=== PATIENT | female | born 1980 | race Caucasian/White ===

== ENCOUNTER 2017-03-02 22:58 | Emergency (ER) | payer OTHER ==
[~2017-03-02] VITALS: Ht 162.6 cm; Wt 63.6 kg
[2017-03-02 23:00] VITALS: Ht 162.6 cm; Wt 63.6 kg
[2017-03-02] MEDS ORDERED: ONDANSETRON 4 MG INJ IV STA (23:39)
[2017-03-02] MEDS ORDERED: SOD CHLORIDE 0.9% 1,000 ML IV STA (23:39)
[2017-03-02] MEDS ORDERED: FAMOTIDINE 20 MG INJ IV STA (23:39)
--- NOTE | 2017-03-02 23:55 | ERD ---
ER Documentation Chief Complaint Date/Time DATE: 03/02/17 TIME: 23:53 Chief Complaint SOB X 1 WEEK. WORSE TONIGHT. DENIES COUGH OR FEVER 9 WEEKS HPI 36-year-old female presents here in emergency department for complaints of mid chest pain, epigastric pain radiating to the mid chest area shortness of breath on and off for one week. Patient also has vomiting episodes with the ,2 -3 episodes per day. Patient does not take any medication for vomiting. Patient describes the pain as sharp pain at epigastric pain and burning pain 4/10 scale , accompanying the vomiting episodes. Patient states it gets worse at night. Patient denies any dyspnea on exertion or dyspnea on lying down. Patient denies any palpitations or regular heartbeat. Patient denies any fever or chills. Patient denies hematuria or dysuria. Patient denies any lower abdominal pain vaginal bleeding or cramping. Patient denies any flank pain. ROS All systems reviewed and are negative except as per history of present illness. Medications Home Meds Reported Medications [none] Unknown Strength No Conflict Check 03/02/17 Allergies Allergies: Coded Allergies: No Known Allergy (Unverified , 03/02/17) PMhx/Soc Medical and Surgical Hx: pt denies Medical Hx, pt denies Surgical Hx Hx Alcohol Use: No Hx Substance Use: No Hx Tobacco Use: No Smoking Status: Never smoker FmHx Family History: No coronary disease, No diabetes, No other Physical Exam Vitals Vital Signs Date Time Temp Pulse Resp B/P Pulse Ox O2 Delivery O2 Flow Rate FiO2 03/02/17 23:00 97.0 69 22 101/65 100 Physical Exam GENERAL: The patient is well developed and appropriate for usual state of health, in no apparent distress. CHEST: Clear to auscultation bilaterally. There are no rales, wheezes or rhonchi. HEART: Regular rate and rhythm. No murmurs, clicks, rubs or gallops. No S3 or S4. ABDOMEN: Soft, nontender and nondistended. Good bowel sounds. No rebound or guarding. No gross peritonitis. No gross organomegaly or masses. No Aky sign or McBurney point tenderness. BACK: No midline or flank tenderness. EXTREMITIES: Equal pulses bilaterally. There is no peripheral clubbing, cyanosis or edema. No focal swelling or erythema. Full range of motion. Grossly neurovascularly intact. NEURO: Alert and oriented. Cranial nerves 2-12 intact. Motor strength in all 4 extremities with 5/5 strength. Sensation grossly intact. Normal speech and gait. SKIN: There is no apparent rash or petechia. The skin is warm and dry. HEMATOLOGIC AND LYMPHATIC: There is no evidence of excessive bruising or lymphedema. No gross cervical, axillary, or inguinal lymphadenopathy. Result Diagram: 03/02/17 3596 03/02/17 9410 Results 24 hrs Laboratory Tests Test 03/02/17 23:50 03/02/17 23:58 Urine Color LT. YELLOW Urine Clarity CLEAR Urine pH 7.5 Urine Specific [place] 1.010 Urine Ketones NEGATIVE Urine Nitrite NEGATIVE Urine Bilirubin NEGATIVE Urine Urobilinogen 0.2 E.U./dL Urine Leukocyte Esterase NEGATIVE Urine Hemoglobin NEGATIVE Urine Glucose NEGATIVE% Urine Total Protein NEGATIVE Sodium Level 134mmol/L Potassium Level 4.0mmol/L Chloride Level 103mmol/L Carbon Dioxide Level 25mmol/L Anion Gap 10 Blood Urea Nitrogen 5mg/dl Creatinine 0.53mg/dl Glucose Level 85mg/dl Calcium Level 9.4mg/dl Total Bilirubin 0.1mg/dl Direct Bilirubin 0.00mg/dl Indirect Bilirubin 0.1mg/dl Aspartate Amino Transf (AST/SGOT) 17IU/L Alanine Aminotransferase (ALT/SGPT) 25IU/L Alkaline Phosphatase 55IU/L Total Protein 7.8g/dl Albumin 4.3g/dl Globulin 3.50g/dl Albumin/Globulin Ratio 1.22 Lipase 75U/L White Blood Count 9.610^3/ul Red Blood Count 4.3610^6/ul Hemoglobin 13.0g/dl Hematocrit 38.0% Mean Corpuscular Volume 87.2fl Mean Corpuscular Hemoglobin 29.8pg Mean Corpuscular Hemoglobin Concent 34.2g/dl Red Cell Distribution Width 14.1% Platelet Count 21029^3/UL Mean Platelet Volume 9.9fl Neutrophils % 53.4% Lymphocytes % 37.0% Monocytes % 7.6% Eosinophils % 1.4% Basophils % 0.3% Nucleated Red Blood Cells % 0.0/100WBC Neutrophils # 5.110^3/ul Lymphocytes # 3.510^3/ul Monocytes # 0.710^3/ul Eosinophils # 0.110^3/ul Basophils # 0.010^3/ul Nucleated Red Blood Cells # 0.010^3/ul Beta HCG, Quantitative 574365.0mIU/ml Current Medications Medications (Trade) Dose Ordered Sig/Emily Route PRN Reason Start Time Stop Time Status Last Admin Dose Admin Sodium Chloride (NS) 1,000 ml @ 1,000 mls/hr Q1H STAT IV 03/02/17 23:39 03/03/17 00:38 DC 03/03/17 00:18 Ondansetron HCl (Zofran Inj) 4 mg ONCE STAT IV 03/02/17 23:39 03/02/17 23:43 DC 03/03/17 00:18 Famotidine (Pepcid Iv) 20 mg ONCE STAT IV 03/02/17 23:39 03/02/17 23:43 DC 03/03/17 00:18 Normal saline IV bolus was given here in emergency department for rehydration, patient tolerated IV fluids. Pepcid was given here in emergency department, Patient was given Zofran here in the emergency department. After treatment, patient was able to tolerate po fluids here in the emergency department without any vomiting. There is no signs and symptoms of dehydration. EKG was done, read by me and is normal sinus rhythm at a rate of 55, normal axis , there is no ST changes or changes in the EKG that indicates any cardiac emergencies at this time. Patient's EKG was also reviewed by Dr. Cano. Impression: no acute findings on EKG Procedures/MDM Medical Decision Making: Patient symptoms are nonspecific at this time, possibly consistent with hyperemesis gravidarum. Most likely the vomiting causing some shortness of breath and epigastric pain. There is low suspicion for abdominal emergencies at this time. Patients abdominal exam is normal at this time. Patients radiology exam does not show any abdominal emergencies at this time. There is low suspicion for appendicitis, cholecystitis, abdominal aortic aneurysms or peritonitis at this time. There is low suspicion for sepsis. Patient appears well and is hemodynamically stable. There is low suspicion for cardiopulmonary emergencies at this time. Patient has low risk factors. EKG is normal, there is no changes in the EKG that indicates cardiac emergencies. Radiology exams such as x-ray not indicated at this time since patient is also.. There is low suspicion for aortic aneurysm, myocardial infarction, pneumothorax, pleural effusion, pulmonary embolism, or any other cardiopulmonary emergencies at this time. Patient's beta hCG quantitative is elevated most likely consistent with a causing the hyperemesis. Disposition: Home. Condition: Stable Prescription Pepcid, Zofran, Tylenol Instructions: Patient is advised to take medications as prescribed. Patient is advised to rest, increase fluid intake and do brat diet for next 1-2 days and progress as tolerated. Patient is advised that if symptoms are worse, severe abdominal pain, uncontrolled vomiting, high fever, severe flank pain, worst signs and symptoms, to return to the emergency department immediately. Otherwise, patient can follow up with primary care doctor in 5-7 days. Departure Diagnosis: Primary Impression: Hyperemesis gravidarum Additional Impression: Acid reflux Esophagitis presence: without esophagitis Qualified Code: K21.9 - Gastroesophageal reflux disease without esophagitis Condition: Stable Patient Instructions: Gastroesophageal Reflux Disease (GERD), Hyperemesis Gravidarum Additional Instructions: Patient is advised to take medications as prescribed. Patient is advised to rest , increase fluid intake and do brat diet for next 1-2 days and progress as tolerated. Patient is advised that if symptoms are worse, severe abdominal pain , uncontrolled vomiting, high fever, severe flank pain, worst signs and symptoms , to return to the emergency department immediately. Otherwise, patient can follow up with primary care doctor in 5-7 days. EMPERATRIZ COSTA NP March 02, 2017 23:55
[2017-03-03 00:20] LABS: ADD UMIC NO; URINE BILIRUBIN (Dip) NEGATIVE (NEGATIVE); URINE BLOOD (Dip) NEGATIVE (NEGATIVE); URINE COLOR LT. YELLOW (YELLOW); URINE GLUCOSE (Dip) NEGATIVE (NEGATIVE); URINE KETONES (Dip) NEGATIVE (NEGATIVE); URINE LEUKOCYTE ESTERASE (Dip) NEGATIVE (NEGATIVE); URINE NITRITE (Dip) NEGATIVE (NEGATIVE); URINE TOTAL PROTEIN (Dip) NEGATIVE (NEGATIVE); URINE UROBILINOGEN (Dip) 0.2 E.U./dL (0.1-1.0)
[2017-03-03 00:38] LABS: ADD SCAN DIFF NO
[2017-03-03 00:41] LABS: BASOPHILS % 0.3 % (0.0-2.0); EOSINOPHILS # 0.1 10^3/ul (0.0-0.5); EOSINOPHILS % 1.4 % (0.0-7.0); LYMPHOCYTES # 3.5 10^3/ul (0.8-2.9); MEAN CORPUSCULAR HEMOGLOBIN 29.8 pg (29.0-33.0); MEAN CORPUSCULAR HGB CONC 34.2 g/dl (32.0-37.0); MEAN CORPUSCULAR VOLUME 87.2 fl (82.0-101.0); MEAN PLATELET VOLUME 9.9 fl (7.4-10.4); MONOCYTE # 0.7 10^3/ul (0.3-0.9); MONOCYTES % 7.6 % (0.0-11.0); NEUTROPHIL # 5.1 10^3/ul (1.6-7.5); NEUTROPHILS % 53.4 % (39.0-77.0); PLATELET COUNT 253 10^3/UL (140-415); RED BLOOD COUNT 4.36 10^6/ul (4.20-5.40); RED CELL DISTRIBUTION WIDTH 14.1 % (11.5-14.5); WHITE BLOOD COUNT 9.6 10^3/ul (4.8-10.8)
[2017-03-03 00:58] LABS: ALBUMIN 4.3 g/dl (3.3-4.9); ALBUMIN/GLOBULIN RATIO 1.22; BILIRUBIN,INDIRECT 0.1 mg/dl (0-1.1); BILIRUBIN,TOTAL 0.1 mg/dl (0.2-1.3); CALCIUM 9.4 mg/dl (8.4-10.2); CREATININE 0.53 mg/dl (0.44-1.00); TOTAL PROTEIN 7.8 g/dl (6.1-8.1)
[2017-03-03] MEDS ORDERED: FAMO-18 PO (02:13)
[2017-03-03] MEDS ORDERED: ACET500C5 PO (02:13)
[2017-03-03] MEDS ORDERED: ONDA4TAB14 PO (02:13)
[2017-03-03 02:27] VITALS: BP 103/66; PULSE 78
== END 2017-03-03 02:31 | disposition home or self-care (01) ==
LOC: FTE 22:58
DX: O21.0 Mild hyperemesis gravidarum (principal); O99.611 Diseases of the digestive system complicating pregnancy, first trimester; K21.9 Gastro-esophageal reflux disease without esophagitis; Z3A.09 9 weeks gestation of pregnancy
CPT/HCPCS: 80053; 81003; 83690; 84702; 85025; 93005; J2405; J7030; Z7610; 96374; 96375